=== PATIENT | male | born 1980 ===

== ENCOUNTER 2023-10-15 13:25 | Outpatient (CLI) | payer BC, SELFPAY ==
--- OUTSIDE RECORDS SUMMARY | 2023-10-15 13:26 | XMS_ITS | Continuity of Care Document ---
Author Name Unknown Organization [facility] Address [address] [place] [address] Care Team Providers Care Application Packaging Specialist Name Role Phone Allen Wolf Primary Care Physician Encounter [facility] Date(s): 07/05/23 - 07/05/23 [facility] [address] [place] [address] Encounter Diagnosis Dysphagia(Discharge Diagnosis) - 07/05/23 Discharge Disposition: Home or Self Care Attending Physician: Trace Warner MD Admitting Physician: Trace Warner MD Referring Physician: Trace Warner MD Allergies, Adverse Reactions, Alerts No Known Medication Allergies Substance Reaction Severity Status SHELLFISH DERIVED Unknown Active Assessment and Plan Future Appointments Immunizations Given and Recorded Vaccine Date Status Refusal Reason SARS-CoV-2 (COVID-19) mRNA-1273 vaccine 08/07/21 R ecorded SARS-CoV-2 (COVID-19) mRNA-1273 vaccine 01/30/21 R ecorded SARS-CoV-2 (COVID-19) mRNA-1273 vaccine 01/02/21 R ecorded influenza virus vaccine, inactivated 06/21/21 Vaibhav rded Medications Effexor XR 37.5 mg oral capsule, extended release 37.5 mg = 1 cap, Oral, Daily, # 30 cap, 0 Refill(s), Pharmacy: [facility] #[id number], 182, cm, 04/26/23 14:13:00 EDT, Height/Length Dosing, 68.04, kg, 04/26/23 14:13:00 EDT, Weight Dosing Start Date: 06/06/23 Status: Ordered Metoprolol Succinate ER 25 mg oral tablet, extended release 25 mg = 1 tab, Oral, As Directed, PRN other (see comment), as needed, # 30 tab, 11 Refill(s), Pharmacy: [facility] #[id number] Start Date: 03/19/22 Stop Date: 03/14/23 Status: Ordered Problem List Condition Confirmation Course Effective Dates Status Health St atus Informant Anxiety Confirmed Active Elevated blood-pressure reading without diagnosis of hypertension Confirmed Active IBS (irritable bowel syndrome) Confirmed Active Low back pain with sciatica Confirmed Active Sciatica Confirmed Active Social History Social History Type Response Smoking Status Smoking tobacco use: Never tobacco user;Never entered on: 04/26/23 Sex Male Patient Care team information Care Team Personnel Name: Allen Wolf NP Position: Physician Member Role: Informed Provider Care Team Related Persons Name: TAQUERIA ELLIOTT
--- OUTSIDE RECORDS SUMMARY | 2023-10-15 13:26 | XMS_ITS | Continuity of Care Document ---
Author Name Unknown Organization [facility] Address [address] [place] [address] Care Team Providers Care Medical Supply Technician Name Role Phone Allen Wolf Primary Care Physician Encounter [facility] Date(s): 07/03/23 - 07/03/23 [facility] [address] [place] [address] Discharge Disposition: Home Allergies, Adverse Reactions, Alerts No Known Medication Allergies Substance Reaction Severity Status SHELLFISH DERIVED Unknown Active Assessment and Plan Future Appointments Future Scheduled Tests Radiology* XR Barium Swallow w/ Air Contrast 07/04/23 Immunizations Given and Recorded Vaccine Date Status Refusal Reason SARS-CoV-2 (COVID-19) mRNA-1273 vaccine 08/07/21 R ecorded SARS-CoV-2 (COVID-19) mRNA-1273 vaccine 01/30/21 R ecorded SARS-CoV-2 (COVID-19) mRNA-1273 vaccine 01/02/21 R ecorded influenza virus vaccine, inactivated 06/21/21 Vaibhav rded Medications Effexor XR 37.5 mg oral capsule, extended release 37.5 mg = 1 cap, Oral, Daily, # 30 cap, 0 Refill(s), Pharmacy: [facility] #[id number], 182, cm, 04/26/23 14:13:00 EDT, Height/Length Dosing, 68.04, kg, 04/26/23 14:13:00 EDT, Weight Dosing Start Date: 06/06/23 Status: Ordered Metoprolol Succinate ER 25 mg oral tablet, extended release 25 mg = 1 tab, Oral, As Directed, PRN other (see comment), as needed, # 30 tab, 11 Refill(s), Pharmacy: [facility] #[id number] Start Date: 03/19/22 Stop Date: 03/14/23 Status: [...]
--- OUTSIDE RECORDS SUMMARY | 2023-10-15 13:27 | XMS_ITS | Continuity of Care Document ---
Author Name Unknown Organization [facility] Address [address] [place] [address] Care Team Providers Care Slitter Cut Off Operator Name Role Phone Allen Wolf Primary Care Physician Encounter [facility] Date(s): 07/04/23 - 07/04/23 [facility] [address] [place] [address] Discharge Disposition: Home Allergies, Adverse Reactions, Alerts [...] Daily, # 30 cap, 0 Refill(s), Pharmacy: [facility] #[id number], 182, cm, 04/26/23 14:13:00 EDT, Height/Length Dosing, 68.04, kg, 04/26/23 14:13:00 EDT, Weight Dosing Start Date: 06/06/23 Status: Ordered Metoprolol Succinate ER 25 mg oral tablet, extended release 25 mg = 1 tab, Oral, As Directed, PRN other (see comment), as needed, # 30 tab, 11 Refill(s), Pharmacy: [facility] #[id number] Start Date: 03/19/22 Stop Date: 03/14/23 Status: [...] information Care Team Personnel Name: Allen Wolf WIRELESS FIELD TECHNICIAN Position: Physician Member Role: Informed Provider Care Team Related Persons Name: TAQUERIA ELLIOTT
--- OUTSIDE RECORDS SUMMARY | 2023-10-15 13:27 | XMS_ITS | Continuity of Care Document ---
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 Allergies, Adverse Reactions, Alerts No Known Medication Allergies Substance Reaction Severity Status SHELLFISH DERIVED Unknown Active Assessment and Plan Future Appointments Diagnostic Tests Pending * Surgical Pathology [facility] 08/13/23 Functional Status 08/13/23 ADLs Independent 08/07/23 Recent Travel History No recent travel Immunizations Given and Recorded Vaccine Date Status Refusal Reason SARS-CoV-2 (COVID-19) mRNA-1273 vaccine 08/07/21 R ecorded SARS-CoV-2 (COVID-19) mRNA-1273 vaccine 01/30/21 R ecorded SARS-CoV-2 (COVID-19) mRNA-1273 vaccine 01/02/21 R ecorded influenza virus vaccine, inactivated 06/21/21 Vaibhav rded Medications Metoprolol Succinate ER 25 mg oral tablet, extended release 25 mg = 1 tab, Oral, As Directed, PRN other (see comment), as needed, # 30 tab, 11 Refill(s), Pharmacy: [facility] #[id number] Start Date: 03/19/22 Stop Date: 03/14/23 Status: Ordered venlafaxine 37.5 mg oral capsule, extended release 1 cap, Oral, Daily, # 30 cap, 0 Refill(s), Pharmacy: [facility] #[id number], 182, cm, 04/26/2314:13:00 EDT, Height/Length Dosing, 68.04, kg, 04/26/23 14:13:00 EDT, Weight Dosing Start Date: 07/08/23 Status: Ordered Problem List Condition Confirmation Course Effective Dates Status Health St atus Informant Anxiety Confirmed Active Elevated blood-pressure reading without diagnosis of hypertension Confirmed Active IBS (irritable bowel syndrome) Confirmed Active Low back pain with sciatica Confirmed Active Sciatica Confirmed Active Procedures Procedure Date Related Diagnosis Body Site Status Bone graft Completed Jaw and temporomandibular joint operations Completed Results Laboratory List Name Date Helicobacter Pylori Urease 08/13/23 Most recent to oldest [Reference Range]: 1 Helicobacter Pylori Urease [Negative] Ne gative (08/13/23 10:57 AM) Vital Signs Most recent to oldest [Reference Range]: 1 2 3 Temperature Temporal Artery [36-38 Deg C] 36.2 Deg C (08/13/23 10:30 AM) 35.8 Deg C *LOW* (08/13/23 9:10 AM) 36.8 Deg C (08/13/23 7:05 AM) Temperature Temporal Artery (DegF) [97.3-100 Deg F] 97.16 Deg F *LOW* (08/13/23 10:30 AM) 96.44 Deg F *LOW* (08/13/23 9:10 AM) Peripheral Pulse Rate [60-100 bpm] 71 bpm (08/13/23 10:30 AM) 77 bpm (08/13/23 10:15 AM) 66 bpm (08/13/23 10:00 AM) Heart Rate Monitored [60-100 bpm] 72 bpm (08/13/23 10:30 AM) 76 bpm (08/13/23 10:15 AM) 65 bpm (08/13/23 10:00 AM) Respiratory Rate [12-24 br/min] 22 br/min (08/13/23 10:30 AM) 17 br/min (08/13/23 10:15 AM) 9 br/min *LOW* (08/13/23 10:00 AM) Blood Pressure [90-140/60-90 mmHg] 122/95mmHg (08/13/23 10:30 AM) 126/92mmHg (08/13/23 10:15 AM) 132/91mmHg (08/13/23 10:00 AM) Mean Arterial Pressure, Cuff [70-110 mmHg] 104 mmHg (08/13/23 10:30 AM) 103 mmHg (08/13/23 10:15 AM) 105 mmHg (08/13/23 10:00 AM) Mean Arterial Pressure Cuff 102 mmHg (08/13/23 7:05 AM) Blood Pressure Location Left arm (08/13/23 7:05 AM) Weight 67.9 kg (08/13/23 7:05 AM) Weight Dosing 67.900 kg (08/13/23 7:05 AM) Height 183 cm (08/13/23 7:05 AM) Body Mass Index 20.28 kg/m2 (08/13/23 7:05 AM) Social History Social History Type Response Smoking Status Smoking tobacco use: Never tobacco user;Never entered on: 04/26/23 Sex Male Hospital Discharge Instructions Patient Education 08/13/2023 09:24:09 Hiatal Hernia Hiatal Hernia A hiatal hernia occurs when part of the stomach slides above the muscle that separates the abdomen from the chest (diaphragm). A person can be born with a hiatal hernia (congenital), or it may develop over time. In almost all cases of hiatal hernia, only the top part of the stomach pushes through the diaphragm. Many people have a hiatal hernia with no symptoms. The larger the hernia, the more likely it is that you will have symptoms. In some cases, a hiatal hernia allows stomach acid to flow back into the tube that carries food from your mouth to your stomach (esophagus). This may cause heartburn symptoms. Severe heartburn symptoms may mean that you have developed a condition called gastroesophageal reflux disease (GERD). What are the causes? This condition is caused by a weakness in the opening (hiatus) where the esophagus passes through the diaphragm to attach to the upper part of the stomach. A person may be born with a weakness in thehiatus, or a weakness can develop over time. What increases the risk? This condition is more likely to develop in: ??? Older people. Age is a major risk factor for a hiatal hernia, especially if you are over the age of 50. ??? women. ??? People who are overweight. ??? People who have frequent constipation. What are the signs or symptoms? Symptoms of this condition usually develop in the form of GERD symptoms. Symptoms include: ??? Heartburn. ??? Belching. ??? Indigestion. ??? Trouble swallowing. ??? Coughing or wheezing. ??? Sore throat. ??? Hoarseness. ??? Chest pain. ??? Nausea and vomiting. How is this diagnosed? This condition may be diagnosed during testing for GERD. Tests that may be done include: ??? X-rays of your stomach or chest. ??? An upper gastrointestinal (GI) series. This is an X-ray exam of your GI tract that is taken after you swallow a chalky liquid that shows up clearly on the X-ray. ??? Endoscopy. This is a procedure to look into your stomach using a thin, flexible tube that has atiny camera and light on the end of it. How is this treated? This condition may be treated by: ??? Dietary and lifestyle changes to help reduce GERD symptoms. ??? Medicines. These may include: ??? Etit-ggn-ercsuxx antacids. ??? Medicines that make your stomach empty more quickly. ??? Medicines that block the production of stomach acid (H2 blockers). ??? Stronger medicines to reduce stomach acid (proton pump inhibitors). ??? Surgery to repair the hernia, if other treatments are not helping. If you have no symptoms, you may not need treatment. Follow these instructions at home: Lifestyle and activity ??? Do not use any products that contain nicotine or tobacco, such as cigarettes and e-cigarettes. If you need help quitting, ask your health care provider. ??? Try to achieve and maintain a healthy body weight. ??? Avoid putting pressure on your abdomen. Anything that puts pressure on your abdomen increases the amount of acid that may be pushed up into your esophagus. ??? Avoid bending over, especially after eating. ??? Raise the head of your bed by putting blocks under the legs. This keeps your head and esophagushigher than your stomach. ??? Do not wear tight clothing around your chest or stomach. ??? Try not to strain when having a bowel movement, when urinating, or when lifting heavy objects. Eating and drinking ??? Avoid foods that can worsen GERD symptoms. These may include: ??? Fatty foods, like fried foods. ??? [place]burn fruits, like oranges or lemon. ??? Other foods and drinks that contain acid, like orange juice or tomatoes. ??? Spicy food. ??? Chocolate. ??? Eat frequent small meals instead of three large meals a day. This helps prevent your stomach from getting too full. ??? Eat slowly. ??? Do not lie down right after eating. ??? Do not eat 1???2 hours before bed. ??? Do not drink beverages with caffeine. These include cola, coffee, cocoa, and tea. ??? Do not drink alcohol. General instructions ??? Take pylj-eqj-nhwjcqw and prescription medicines only as told by your health care provider. ??? Keep all follow-up visits as told by your health care provider. This is important. Contact a health care provider if: ??? Your symptoms are not controlled with medicines or lifestyle changes. ??? You are having trouble swallowing. ??? You have coughing or wheezing that will not go away. Get help right away if: ??? Your pain is getting worse. ??? Your pain spreads to your arms, neck, jaw, teeth, or back. ??? You have shortness of breath. ??? You sweat for no reason. ??? You feel sick to your stomach (nauseous) or you vomit. ??? You vomit blood. ??? You have bright red blood in your stools. ??? You have black, tarry stools. Summary ??? A hiatal hernia occurs when part of the stomach slides above the muscle that separates the abdomen from the chest (diaphragm). ??? A person may be born with a weakness in the hiatus, or a weakness can develop over time. ??? Symptoms of hiatal hernia may include heartburn, trouble swallowing, or sore throat. ??? Management of hiatal hernia includes eating frequent small meals instead of three large meals aday. ??? Get help right away if you vomit blood, have bright red blood in your stools, or have black, tarry stools. This information is not intended to replace advice given to you by your health care provider. Make sure you discuss any questions you have with your health care provider. Document Revised: 07/10/2022 Document Reviewed: 07/27/2021 [employer] Patient Education ?? 2022 [employer]. 08/13/2023 09:23:53 ss colonoscopy discharge instructions (CUSTOM) COLONOSCOPY / SIGMOIDOSCOPY You had a polyp removed today. This will be sent to pathology and the office will call you in 10-14days with results. Following day: Return to full activity, including work. Diet: Eat and drink normally, unless instructed otherwise. Treatment for common after affects: Mild abdominal pain, bloating, or excessive gas: Rest, eat lightly and use a heating pad. Symptoms to watch for and report to your physician: SEVERE abdominal pain or bloating. Fever within 24 hours after procedure. A large amount of rectal bleeding. (A small amount of blood from the rectum is not serious, especially if hemorrhoids are present.) If a polyp has been removed- for the next seven days: Do not take aspirin. If you did NOT stop taking aspirin before your procedure, continue taking it even if you???ve had a polyp removed. If bright red rectal bleeding occurs, call your physician. If you have had a Colonoscopy: Do not attempt to drive a vehicle or operate power equipment of any kind for at least 24 hours after discharge from the hospital. Do not consume alcoholic beverages or other mood-altering drugs on the day of surgery. Mild irritation at needle site: Apply warm, moist pack to area for 20 minutes four times a day for 2-3 days. Call physician if persistent redness and/or drainage at needle site. In the event of any problems after surgery, do not hesitate to contact your doctor, [facility] , or the Emergency Room at [phone]. Diagnosis: Colon Polyp, Hiatal Hernia Doctor: Chris 08/13/2023 09:04:52 Upper Endoscopy, Adult, Care After Upper Endoscopy, Adult, Care After This sheet gives you information about how to care for yourself after your procedure. Your health care provider may also give you more specific instructions. If you have problems or questions, contact your health care provider. What can I expect after the procedure? After the procedure, it is common to have: ??? A sore throat. ??? Mild stomach pain or discomfort. ??? Bloating. ??? Nausea. Follow these instructions at home: ??? Follow instructions from your health care provider about what to eat or drink after your procedure. ??? Return to your normal activities as told by your health care provider. Ask your health care provider what activities are safe for you. ??? Take qeof-tis-ltkteie and prescription medicines only as told by your health care provider. ??? If you were given a sedative during the procedure, it can affect you for several hours. Do not drive or operate machinery until your health care provider says that it is safe. ??? Keep all follow-up visits as told by your health care provider. This is important. Contact a health care provider if you have: ??? A sore throat that lasts longer than one day. ??? Trouble swallowing. Get help right away if: ??? You vomit blood or your vomit looks like coffee grounds. ??? You have: ??? A fever. ??? Bloody, black, or tarry stools. ??? A severe sore throat or you cannot swallow. ??? Difficulty breathing. ??? Severe pain in your chest or abdomen. Summary ??? After the procedure, it is common to have a sore throat, mild stomach discomfort, bloating, andnausea. ??? If you were given a sedative during the procedure, it can affect you for several hours. Do not drive or operate machinery until your health care provider says that it is safe. ??? Follow instructions from your health care provider about what to eat or drink after your procedure. ??? Return to your normal activities as told by your health care provider. This information is not intended to replace advice given to you by your health care provider. Make sure you discuss any questions you have with your health care provider. Document Revised: 07/01/2020 Document Reviewed: 01/26/2019 Elsevier Patient Education ?? 2022 [employer] Discharge instructions * Johanna Cortez: PERFORM Event Display: Discharge Instructions Authored Date: [id number] HERBERT LANIER :1980 Age:42 years Sex:Male Visit Date:08/13/2023 Primary Care Physician: Allen Wolf NP Hospital Discharge Instructions We would like to thank you for allowing us to assist you with your healthcare needs. The following includes patient education materials and information regarding your injury/illness. Your Next Steps Discharge Orders Discharge Patient Instructions, Rest today. Resume diet and activities as tolerated. Scheduled Future Appointments Saturday 10:40 AM EDT ?? Your Summary Your Care Team Admitting Physician - Trace Warner MD Attending Physician - Trace Warner MD Primary Care Physician - Allen Wolf NP Referring Physician - Allen Wolf NP Education Materials COLONOSCOPY / SIGMOIDOSCOPY You had a polyp removed today. This will be sent to pathology and the office will call you in 10-14days with results. ? Following day: Return to full activity, including work. Diet: Eat and drink normally, unless instructed otherwise. ? Treatment for common after affects: Mild abdominal pain, bloating, or excessive gas: Rest, eat lightly and use a heating pad. ? Symptoms to watch for and report to your physician: SEVERE abdominal pain or bloating. ? Fever within 24 hours after procedure. ? A large amount of rectal bleeding. (A small amount of blood from the rectum is not serious, especially if hemorrhoids are present.) ? If a polyp has been removed- for the next seven days: Do not take aspirin. If you did NOT stop taking aspirin before your procedure, continue taking it even if you???ve had a polyp removed. ? If bright red rectal bleeding occurs, call your physician. ? If you have had a Colonoscopy: Do not attempt to drive a vehicle or operate power equipment of any kind for at least 24 hours after discharge from the hospital. ? Do not consume alcoholic beverages or other mood-altering drugs on the day of surgery. ? Mild irritation at needle site: Apply warm, moist pack to area for 20 minutes four times a day for 2-3 days. ? Call physician if persistent redness and/or drainage at needle site. ? In the event of any problems after surgery, do not hesitate to contact your doctor, [facility] , or the Emergency Room at [phone]. Diagnosis: Colon Polyp, Hiatal Hernia Doctor: Chris Patient/Home Energy Consultant Signature Patient Name:RENNY LANIERSILVIO Vidales I have received this information and my questions have been answered. Patient/Home Energy Consultant Name: Patient/Home Energy Consultant Signature: Relationship to Patient: Witness Name/Signature: Date: Electronically Signed on: 08/13/2023 09:32 ESTSigned by:AMD History and physical note * Trace Warner MD: PERFORM Event Display: History and Physical Authored Date: [id number] HERBERT LANIER :1980 Age:42 years Sex:Male Visit Date:08/13/2023 Primary Care Physician: Allen Wolf NP Physical Exam Vitals & Measurements T:??36.8?C ??(Temporal Artery)?? HR:??91??(Peripheral)?? RR:??18?? SpO2:??100%?? HT:??183??cm??WT:??67.9??kg?? BMI:??20.28?? Pain Score:??5?? O2 Therapy:??Room air?? 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 He and his partner moved to [facility] from??[place] about 3 years ago. Herbert??is found since??he was in college he has had some issues with??some food intolerances.?? Difficult to??describe some of the symptoms but he has a??somewhat of a aversion to certain foods wherehe does have??a significant amount of emesis??and food intolerances.?? Sometimes associated with this he has some loose stools. ?? No history of bloody stools no weight loss associated with??bowel habit changes??no abdominal pain ?? About 2 weeks ago he thinks he might of has??GI??enteritis??and about 24 hours of vomiting and someloose stools that did resolve. Denies any symptoms of chronic GERD??no chest discomfort he does take Pepcid on a??or Zantac an occasional basis ?? He has not seen GI regarding the food??issues. ?? Drives as??similar??to prior to his grandmother with have a certain foods [1] Vitals & Measurements T:??36.8?C ??(Temporal Artery)?? HR:??91??(Peripheral)?? RR:??18?? SpO2:??100%?? HT:??183??cm??WT:??67.9??kg?? BMI:??20.28?? Pain Score:??5?? O2 Therapy:??Room air?? Peers no acute distress??chronological age Trachea is midline without deviation oral motor Kos is clear??and range of motion her neck and jaw Cardiac exam is regular rate and rhythm Pulmonary clear to auscultation Abdomen soft no mass or tenderness Extremities??able to ambulate without difficulty Assessment/Plan Ordered: Cetacaine mucous membrane aerosol, 1 sprays, Mucous Membrane, Aerosol, Once, First Dose: 08/13/23 7:15:00 EST, Stop Date: 08/13/23 7:15:00 EST, Physician Stop, NOW Dextrose 5% in Lactated Ringers Injection 500 mL, Total Volume (mL): 500, 500 mL, Soln-IV, IV, 30 mL/hr, Start Date: 08/13/23 7:19:00 EST, 67.9 kg, Populate Charting Weight From Order, 1.86, m2 Valium, 2.5 mg = 0.5 mL, IV Push, Soln, every 2 min for 10 times, PRN sedation, First Dose: 08/13/23 7:15:00 EST, Stop Date: Limited # of times, Physician Stop, Routine Valium, 5 mg = 1 mL, IV Push, Soln, every 2 min for 10 times, PRN sedation, First Dose: 08/13/23 7:15:00 EST, Stop Date: Limited # of times, Physician Stop, Routine Valium, 7.5 mg = 1.5 mL, IV Push, Soln, every 2 min for 10 times, PRN sedation, First Dose: 08/13/23 7:15:00 EST, Stop Date: Limited # of times, Physician Stop, Routine Valium, 10 mg = 2 mL, IV Push, Soln, every 2 min for 10 times, PRN sedation, First Dose: 08/13/23 7:15:00 EST, Stop Date: Limited # of times, Physician Stop, Routine fentaNYL, 25 mcg = 0.5 mL, IV Push, Soln, every 2 min for 12 times, PRN sedation, First Dose: 08/13/23 7:15:00 EST, Stop Date: Limited # of times, Physician Stop, Routine fentaNYL, 50 mcg = 1 mL, IV Push, Soln, every 2 min for 12 times, PRN sedation, First Dose: 08/13/23 7:15:00 EST, Stop Date: Limited # of times, Physician Stop, Routine fentaNYL, 75 mcg = 1.5 mL, IV Push, Soln, every 2 min for 12 times, PRN sedation, First Dose: 08/13/23 7:15:00 EST, Stop Date: Limited # of times, Physician Stop, Routine fentaNYL, 100 mcg = 2 mL, IV Push, Soln, every 2 min for 12 times, PRN sedation, First Dose: 08/13/23 7:15:00 EST, Stop Date: Limited # of times, Physician Stop, Routine flumazenil, 0.2 mg = 2 mL, IV Push, Soln, As Directed for 10 times, PRN sedation, Administer over: 15 seconds, First Dose: 08/13/23 7:15:00 EST, Stop Date: Limited # of times, Physician Stop, Routine lidocaine 1% injectable solution, 1 mg 0.1 mL, Intradermal, Soln, As Directed, PRN other (see comment), First Dose: 08/13/23 7:19:00 EST, Routine Versed, 1 mg = 1 mL, IV Push, Soln, every 2 min for 10 times, PRN sedation, First Dose: 08/13/23 7:15:00 EST, Stop Date: Limited # of times, Physician Stop, Routine Versed, 2 mg = 2 mL, IV Push, Soln, every 2 min for 10 times, PRN sedation, First Dose: 08/13/23 7:15:00 EST, Stop Date: Limited # of times, Physician Stop, Routine Versed, 3 mg = 3 mL, IV Push, Soln, every 2 min for 10 times, PRN sedation, First Dose: 08/13/23 7:15:00 EST, Stop Date: Limited # of times, Physician Stop, Routine Versed, 4 mg = 4 mL, IV Push, Soln, every 2 min for 10 times, PRN sedation, First Dose: 08/13/23 7:15:00 EST, Stop Date: Limited # of times, Physician Stop, Routine naloxone, 0.08 mg = 0.2 mL, IV Push, Soln, every 2 min for 10 times, PRN sedation, First Dose: 08/13/23 7:15:00 EST, Stop Date: Limited # of times, Physician Stop, Routine NPO, 08/13/23 7:19:00 EST, Constant Indicator Obtain Surgical Consent, 08/13/23 7:19:00 EST, Colonoscopy and Esophagogastroduodenoscopy Peripheral IV Insertion, 08/13/23 7:19:00 EST Proceed with??EGD??colonoscopy and most likely perform some biopsies Problem List/Past Medical History Ongoing Anxiety Elevated blood-pressure reading without diagnosis of hypertension IBS (irritable bowel syndrome) Low back pain with sciatica Sciatica Historical No qualifying data Procedure/Surgical History ???Bone graft???Jaw and temporomandibular joint operations Medications Inpatient Cetacaine mucous membrane aerosol, 1 sprays, Mucous Membrane, Once Dextrose 5% in Lactated Ringers Injection 500 mL, 500 mL, IV fentaNYL, 25 mcg= 0.5 mL, IV Push, every 2 min, PRN fentaNYL, 50 mcg= 1 mL, IV Push, every 2 min, PRN fentaNYL, 75 mcg= 1.5 mL, IV Push, every 2 min, PRN fentaNYL, 100 mcg= 2 mL, IV Push, every 2 min, PRN flumazenil, 0.2 mg= 2 mL, IV Push, As Directed, PRN lidocaine 1% injectable solution, 1 mg= 0.1 mL, Intradermal, As Directed, PRN naloxone, 0.08 mg= 0.2 mL, IV Push, every 2 min, PRN Valium, 2.5 mg= 0.5 mL, IV Push, every 2 min, PRN Valium, 5 mg= 1 mL, IV Push, every 2 min, PRN Valium, 7.5 mg= 1.5 mL, IV Push, every 2 min, PRN Valium, 10 mg= 2 mL, IV Push, every 2 min, PRN Versed, 1 mg= 1 mL, IV Push, every 2 min, PRN Versed, 2 mg= 2 mL, IV Push, every 2 min, PRN Versed, 3 mg= 3 mL, IV Push, every 2 min, PRN Versed, 4 mg= 4 mL, IV Push, every 2 min, PRN Home Metoprolol Succinate ER 25 mg oral tablet, extended release, 25 mg= 1 tab, Oral, As Directed, PRN, 11 refills venlafaxine 37.5 mg oral capsule, extended release, 1 cap, Oral, Daily Allergies SHELLFISH DERIVED No Known Medication Allergies Social History Alcohol Current, Beer, Wine, Liquor, Daily Electronic Cigarette/Vaping Electronic Cigarette Use: Never. Employment/School Employed, Work/School description: self. Home/Environment Lives with Spouse. Nutrition/Health Diet: Regular. Caffeine intake amount: 2 teas in the am, couple mini cans of diet soda daily. Substance Use Current, Marijuana, 1-2 times per week Tobacco Never tobacco user Tobacco Use:. Never Smokeless Tobacco use:. Immunizations Vaccine Date Status SARS-CoV-2 (COVID-19) mRNA-1273 vaccine 08/07/2021 Recorded influenza virus vaccine, inactivated 06/21/2021 Recorded SARS-CoV-2 (COVID-19) mRNA-1273 vaccine 01/30/2021 Recorded SARS-CoV-2 (COVID-19) mRNA-1273 vaccine 01/02/2021 Recorded [1]??Office Visit Note; Trace Warner MD 07/03/2023 10:28 EDT Electronically Signed on 08/13/23 08:12 AM Trace Warner MD * Trace Warner MD: PERFORM, MODIFY Event Display: History and Physical Authored Date: [id number] HERBERT LANIER :1980 Age:42 years Sex:Male Visit Date:08/13/2023 Primary Care Physician: Allen Wolf NP Problem List/Past Medical History Ongoing Anxiety Elevated blood-pressure reading without diagnosis of hypertension IBS (irritable bowel syndrome) Low back pain with sciatica Sciatica Historical No qualifying data Procedure/Surgical History ???Bone graft???Jaw and temporomandibular joint operations Medications Inpatient Cetacaine mucous membrane aerosol, 1 sprays, Mucous Membrane, Once Dextrose 5% in Lactated Ringers Injection 500 mL, 500 mL, IV fentaNYL, 25 mcg= 0.5 mL, IV Push, every 2 min, PRN fentaNYL, 50 mcg= 1 mL, IV Push, every 2 min, PRN fentaNYL, 75 mcg= 1.5 mL, IV Push, every 2 min, PRN fentaNYL, 100 mcg= 2 mL, IV Push, every 2 min, PRN flumazenil, 0.2 mg= 2 mL, IV Push, As Directed, PRN lidocaine 1% injectable solution, 1 mg= 0.1 mL, Intradermal, As Directed, PRN naloxone, 0.08 mg= 0.2 mL, IV Push, every 2 min, PRN Valium, 2.5 mg= 0.5 mL, IV Push, every 2 min, PRN Valium, 5 mg= 1 mL, IV Push, every 2 min, PRN Valium, 7.5 mg= 1.5 mL, IV Push, every 2 min, PRN Valium, 10 mg= 2 mL, IV Push, every 2 min, PRN Versed, 1 mg= 1 mL, IV Push, every 2 min, PRN Versed, 2 mg= 2 mL, IV Push, every 2 min, PRN Versed, 3 mg= 3 mL, IV Push, every 2 min, PRN Versed, 4 mg= 4 mL, IV Push, every 2 min, PRN Home Metoprolol Succinate ER 25 mg oral tablet, extended release, 25 mg= 1 tab, Oral, As Directed, PRN, 11 refills venlafaxine 37.5 mg oral capsule, extended release, 1 cap, Oral, Daily Allergies SHELLFISH DERIVED No Known Medication Allergies Social History Alcohol Current, Beer, Wine, Liquor, Daily Electronic Cigarette/Vaping Electronic Cigarette Use: Never. Employment/School Employed, Work/School description: self. Home/Environment Lives with Spouse. Nutrition/Health Diet: Regular. Caffeine intake amount: 2 teas in the am, couple mini cans of diet soda daily. Substance Use Current, Marijuana, 1-2 times per week Tobacco Never tobacco user Tobacco Use:. Never Smokeless Tobacco use:. Immunizations Vaccine Date Status SARS-CoV-2 (COVID-19) mRNA-1273 vaccine 08/07/2021 Recorded influenza virus vaccine, inactivated 06/21/2021 Recorded SARS-CoV-2 (COVID-19) mRNA-1273 vaccine 01/30/2021 Recorded SARS-CoV-2 (COVID-19) mRNA-1273 vaccine 01/02/2021 Recorded Electronically Signed on 08/13/23 09:08 AM [facility] Electronically Signed on 08/13/23 09:23 AM Trace Warner MD Patient Care team information Care Team Personnel Name: Allen Wolf NP Position: Physician Member Role: Informed Provider Address: Address: [address] [place] [address], [place] [address]- [place] Care Team Related Persons Name: TAQUERIA ELLIOTT
--- OUTSIDE RECORDS SUMMARY | 2023-10-15 13:27 | XMS_ITS | Continuity of Care Document ---
Author Name Unknown Organization [facility] Address [address] [place] [address] Care Team Providers Care Speeder Machine Operator Name Role Phone Allen Allen Primary Care Physician Encounter [facility] Date(s): 04/26/23 - 04/26/[address] [address] Encounter Diagnosis Pain in lower back(Discharge Diagnosis) - 04/26/23 Discharge Disposition: Home or Self Care Attending Physician: Lucia Tan MD Admitting Physician: Lucia Tan MD Allergies, Adverse Reactions, Alerts No Known Medication Allergies Substance Reaction Severity Status SHELLFISH DERIVED Unknown Active Assessment and Plan Extracted from: Title:Clinical Document Author:Jelena Morgan te:04/26/23 Diagnosis: 1. Pain in lower back Comment: Diagnosis: Back pain Comment: Future Appointments Functional Status 04/26/23 Family Member Travel History No recent t ravel Recent Travel History No recent travel Other exposure to Infectious Disease Non e Immunizations Given and Recorded Vaccine Date Status Refusal Reason SARS-CoV-2 (COVID-19) mRNA-1273 vaccine 08/07/21 R ecorded SARS-CoV-2 (COVID-19) mRNA-1273 vaccine 01/30/21 R ecorded SARS-CoV-2 (COVID-19) mRNA-1273 vaccine 01/02/21 R ecorded influenza virus vaccine, inactivated 06/21/21 Vaibhav rded Medications cyclobenzaprine 5 mg oral tablet 5 mg = 1 tab, Oral, every evening, PRN as needed for muscle spasm, X 4 days, # 4 tab, 0 Refill(s), 04/30/23 3:38:00 PM CDT, Pharmacy: [facility] #[id number], 182, cm, 04/26/23 14:13:00 EDT, Height/Length Dosing, 68.04, kg, 04/26/23 14:13:00 EDT, Weight Dosing Start Date: 04/26/23 Stop Date: 04/30/23 Status: Ordered Metoprolol Succinate ER 25 mg oral tablet, extended release 25 mg = 1 tab, Oral, As Directed, PRN other (see comment), as needed, # 30 tab, 11 Refill(s), Pharmacy: [facility] #[id number] Start Date: 03/19/22 Stop Date: 03/14/23 Status: Ordered omeprazole 40 mg oral delayed release capsule 40 mg = 1 cap, Oral, Daily, # 30 cap, 1 Refill(s), Pharmacy: [facility] #[id number] Start Date: 02/02/22 Stop Date: 04/03/22 Status: Ordered Problem List Condition Confirmation Course Effective Dates Status Health St atus Informant Anxiety Confirmed Active Elevated blood-pressure reading without diagnosis of hypertension Confirmed Active Vital Signs Most recent to oldest [Reference Range]: 1 Temperature Temporal Artery [36-38 Deg C ] 36.1 Deg C (04/26/23 2:06 PM) Peripheral Pulse Rate [60-100 bpm] 76 bp m (04/26/23 2:06 PM) Respiratory Rate [12-24 br/min] 18 br/mi n (04/26/23 2:06 PM) Blood Pressure [90-140/60-90 mmHg] 173/1 13mmHg *HI* (04/26/23 2:06 PM) Weight Dosing 68.04 kg (04/26/23 2:13 PM) Weight Estimated 68.04 kg (04/26/23 2:06 PM) Height/Length Dosing 182.000 cm (04/26/23 2:13 PM) Height/Length Estimated 182.000 cm (04/26/23 2:06 PM) Social History Social History Type Response Smoking Status Smoking tobacco use: Never tobacco user;Never entered on: 04/26/23 Sex Male Hospital Discharge Instructions Patient Education 04/26/2023 15:36:35 Acute Back Pain, Adult Acute Back Pain, Adult Acute back pain is sudden and usually short-lived. It is often caused by an injury to the muscles and tissues in the back. The injury may result from: ??? A muscle, tendon, or ligament getting overstretched or torn. Ligaments are tissues that connectbones to each other. Lifting something improperly can cause a back strain. ??? Wear and tear (degeneration) of the spinal disks. Spinal disks are circular tissue that providecushioning between the bones of the spine (vertebrae). ??? Twisting motions, such as while playing sports or doing yard work. ??? A hit to the back. ??? Arthritis. You may have a physical exam, lab tests, and imaging tests to find the cause of your pain. Acute back pain usually goes away with rest and home care. Follow these instructions at home: Managing pain, stiffness, and swelling ??? Take gmro-etx-swqstau and prescription medicines only as told by your health care provider. Treatment may include medicines for pain and inflammation that are taken by mouth or applied to the skin, or muscle relaxants. ??? Your health care provider may recommend applying ice during the first 24???48 hours after your pain starts. To do this: ??? Put ice in a plastic bag. ??? Place a towel between your skin and the bag. ??? Leave the ice on for 20 minutes, 2???3 times a day. ??? Remove the ice if your skin turns bright red. This is very important. If you cannot feel pain, heat, or cold, you have a greater risk of damage to the area. ??? If directed, apply heat to the affected area as often as told by your health care provider. Usethe heat source that your health care provider recommends, such as a moist heat pack or a heating pad. ??? Place a towel between your skin and the heat source. ??? Leave the heat on for 20???30 minutes. ??? Remove the heat if your skin turns bright red. This is especially important if you are unable to feel pain, heat, or cold. You have a greater risk of getting burned. Activity ??? Do not stay in bed. Staying in bed for more than 1???2 days can delay your recovery. ??? Sit up and stand up straight. Avoid leaning forward when you sit or hunching over when you stand. ??? If you work at a desk, sit close to it so you do not need to lean over. Keep your chin tucked in. Keep your neck drawn back, and keep your elbows bent at a 90-degree angle (right angle). ??? Sit high and close to the steering wheel when you drive. Add lower back (lumbar) support to your car seat, if needed. ??? Take short walks on even surfaces as soon as you are able. Try to increase the length of time you walk each day. ??? Do not sit, drive, or clinical psychology teacher one place for more than 30 minutes at a time. Sitting or standing for long periods of time can put stress on your back. ??? Do not drive or use heavy machinery while taking prescription pain medicine. ??? Use proper lifting techniques. When you bend and lift, use positions that put less stress on your back: ??? Bend your knees. ??? Keep the load close to your body. ??? Avoid twisting. ??? Exercise regularly as told by your health care provider. Exercising helps your back heal fasterand helps prevent back injuries by keeping muscles strong and flexible. ??? Work with a physical therapist to make a safe exercise program, as recommended by your health care provider. Do any exercises as told by your physical therapist. Lifestyle ??? Maintain a healthy weight. Extra weight puts stress on your back and makes it difficult to havegood posture. ??? Avoid activities or situations that make you feel anxious or stressed. Stress and anxiety increase muscle tension and can make back pain worse. Learn ways to manage anxiety and stress, such as through exercise. General instructions ??? Sleep on a firm mattress in a comfortable position. Try lying on your side with your knees slightly bent. If you lie on your back, put a pillow under your knees. ??? Keep your head and neck in a straight line with your spine (neutral position) when using electronic equipment like smartphones or pads. To do this: ??? Raise your smartphone or pad to look at it instead of bending your head or neck to look down. ??? Put the smartphone or pad at the level of your face while looking at the screen. ??? Follow your treatment plan as told by your health care provider. This may include: ??? Cognitive or behavioral therapy. ??? Acupuncture or massage therapy. ??? Meditation or yoga. Contact a health care provider if: ??? You have pain that is not relieved with rest or medicine. ??? You have increasing pain going down into your legs or buttocks. ??? Your pain does not improve after 2 weeks. ??? You have pain at night. ??? You lose weight without trying. ??? You have a fever or chills. ??? You develop nausea or vomiting. ??? You develop abdominal pain. Get help right away if: ??? You develop new bowel or bladder control problems. ??? You have unusual weakness or numbness in your arms or legs. ??? You feel faint. These symptoms may represent a serious problem that is an emergency. Do not wait to see if the symptoms will go away. Get medical help right away. Call your local emergency services (911 in the [place] Do not drive yourself to the hospital. Summary ??? Acute back pain is sudden and usually short-lived. ??? Use proper lifting techniques. When you bend and lift, use positions that put less stress on your back. ??? Take nued-ywc-qgrcvbc and prescription medicines only as told by your health care provider, andapply heat or ice as told. This information is not intended to replace advice given to you by your health care provider. Make sure you discuss any questions you have with your health care provider. Document Revised: 11/17/2021 Document Reviewed: 11/17/2021 [employer] Patient Education ?? 2022 [employer]. Physician Emergency department Note * Meli Mayes MD: PERFORM Event Display: ED Note Physician Authored Date: [id number] JULIO CESAR LANIER :1980 Age:42 years Sex:Male Visit Date:04/26/2023 Primary Care Physician: Allen Allen NP Basic Information Time Seen: Meli Mayes MD / 04/26/2023 14:35 Chief Complaint i'm having really bad left sciatic pain, that started this morning. Usually means that my back will go out shortly. 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 Pt reports on and off back pain in the past few years. Lt sided, no radiation down his legs. Pt attributes pain to sciatica. He says he noticed worsening of the pain today as he was walking with his . He denies trauma or fall or strenuous activity.?? There has been no bowel or bladder incontinence or perianal anesthesia. ??The patient also denies numbness or tingling down the extremities, or weakness of any of the extremities. The patient denies current IV drug use or history of. No h/o recent surgery or injections in the back.?? Pt says smoking marijuana provides relief ?? ROS: In addition to the ROS embedded in the HPI, the patient has no Const: fever, chills CV: chest pain or palpittiaons Pulm: sob GI: n/v/c/d or abd pain ? Physical examination GENERAL: A&Ox3, Well developed well nourished in nad HEENT: Moist mucous membranes. NECK: Supple, no JVD. BACK: no ttp over the spine, no step off, there is paraspinal ttp on the [@@@] EXTREMITIES: No clubbing, cyanosis or edema, motor 5/5 in all 4 extremities, sensation intact, gaitis steady [@@@] with normal coordination, patellar reflexes wnl and symmetric b/l.? MDM: 42year-old male with back pain ?? Previous charts reviewed. Vitals reviewed, nursing triage note reviewed ?? Initial DDx in this patient included herniated intervertebral disc, acute ligamentous injury, acutemuscle strain, spondylolisthesis and other musculoskeletal etiologies, cauda equina, spinal fracture, spinal stenosis, epidural abscess and hematoma, cancer metastases, kidney stone, and vascular catastrophe such as aortic dissection. ?? Patient presented with lower back pain with reassuring VS and exam.?? Was noted to have no red flag signs or symptoms of cauda equina or central herniation based on history and exam. Patient denied preceding trauma. ??Patient noted to have a normal neurologic examination in the ED to include deep tendon reflexes in the lower extremities. ??Patient felt to have no indication for imaging at this time. No history of recent surgery or injections in the back, IVDU, fever, or other findings to suggest risk for epidural hematoma or abscess. ??Doubt kidney stone or urinary tract infection given absence of urinary symptoms, significant costovertebral angle (CVA) tenderness or other suggestive findings. ??Not consistent with aortic dissection with pain not described as tearing pain and no chest pain.? Patient reported significant improvement in pain with treatment in the ED w/ toradol prior to discharge. ?? Prior to discharge, we discussed modified activity with emphasis on avoiding prolonged bedrest. ??We discussed return precautions, specifically for worsening pain or focal neurologic deficits, treatment with NSAIDs/muscle relaxants and follow up with primary care doctor within one to two weeks for further evaluation, and the patient demonstrated understanding and agreement with this plan. ??Wealso discussed follow up with primary care doctor for referral to physical therapy and consideration of outpatient imaging. All questions answered. ?? Physical Exam Vitals & Measurements T:??36.1?C ??(Temporal Artery)?? HR:??76??(Peripheral)?? RR:??18?? BP:??173/113?? SpO2:??98%?? HT:??182.000??cm?? WT:??68.04??kg??(Estimated)?? O2 Therapy:??Room air?? Procedure No Qualifying Data Assessment/Plan 1.??Pain in lower back??M54.50 Ordered: cyclobenzaprine 5 mg oral tablet, 5 mg = 1 tab, Oral, every evening, PRN as needed for muscle spasm, X 4 days, # 4 tab, 0 Refill(s), 04/30/23 16:38:00 EDT, Pharmacy: [facility] #[id number], 182,cm, 04/26/23 14:13:00 EDT, Height/Length Dosing, 68.04, kg, 04/26/23 14:13:00 EDT, We... Discharge Patient, 04/26/23 16:38:00 EDT, Constant Indicator ?? Patient Education Acute Back Pain, Adult Medication Reconciliation New Prescription cyclobenzaprine (cyclobenzaprine 5 mg oral tablet)1 tab Oral (given by mouth) every evening as needed as needed for muscle spasm for 4 Days. Refills: 0. ?? Unchanged metoprolol (Metoprolol Succinate ER 25 mg oral tablet, extended release)1 tab Oral (given by mouth)As Directed as needed other (see comment) for 30 Days. as needed. Refills: 11. ?? omeprazole (omeprazole 40 mg oral delayed release capsule)1 Capsules Oral (given by mouth) every day for 30 Days. Refills: 1. Problem List/Past Medical History Ongoing Anxiety Elevated blood-pressure reading without diagnosis of hypertension Historical No qualifying data Medication Administration Given Toradol, 30 mg, IM Allergies SHELLFISH DERIVED No Known Medication Allergies [...] user Tobacco Use:. Never Smokeless Tobacco use:. Electronically Signed on 04/26/23 04:40 PM Meli Mayes MD Emergency department Discharge instructions * Meli Mayes MD: PERFORM Event Display: ED Discharge Information Authored Date: [id number] JULIO CESAR LANIER :1980 Age:42 years Sex:Male Visit Date:04/26/2023 Primary Care Physician: Allen Allen NP Discharge Instructions We would like to thank you for allowing us to assist you with your healthcare needs. The following includes patient education materials and information regarding your injury/illness. Diagnosis from Today's Visit Pain in lower back Discharge Vitals Temperature??(Temporal Artery) 97.0 ??F (36.1 ??C) Heart Rate??(Peripheral) 76 Respiratory Rate?? 18 Blood Pressure?? 173/113?? Height?? 71.65 in (182.000 cm) Weight??(Estimated) 150.03 lb (68.04 kg) Allergies SHELLFISH DERIVED No Known Medication Allergies What to Do Next Instructions from Your Care Team Please continue Tylenol and/or Ibuprofen for your pain. For very severe pain, take muscle relaxant in the evening. Do?? not drive, operate machinery, or make important decisions when taking this medication as it may make you sleepy. Follow up with your primary care provider for reevaluation in 1-2 weeks if your pain persists, as you will likely benefit from physical therapy. Please return to the ED for any new or worsening symptoms. Upcoming Scheduled Appointments Saturday 1:20 PM EDT ?? You were treated today on an emergency basis; it may be hi to contact your primary care provider to notify them of your visit today. You may have been referred to your regular doctor or a specialist, please follow up as instructed. If your condition worsens or you can't get in to see the doctor, contact the Emergency Department. Medications What How Much When Why Instructions Next Dose New cyclobenzaprine (cyclobenzaprine 5 mg oral tablet) 1 tab Oral (given by mouth) Every evening as needed for as needed for muscle spasm Pain in lower back Duration: 4 Days Pickup at [facility] #[id number] Unchanged metoprolol (Metoprolol Succinate ER 25 mg oral tablet, extended release) 1 tab Oral (given by mouth) As Directed as needed for other (see comment) Duration: 30 Days as needed ?? Unchanged omeprazole (omeprazole 40 mg oral delayed release capsule) 1 Capsules Oral (given by mouth) Every day Duration: 30 Days Pharmacy Information [facility] #[id number]: [address] [phone] Education Materials Acute Back Pain, Adult Acute back pain is sudden and usually short-lived. It is often caused by an injury to the muscles and tissues in the back. The injury may result from: ? A muscle, tendon, or ligament getting overstretched or torn. Ligaments are tissues that connect bones to each other. Lifting something improperly can cause a back strain. ? Wear and tear (degeneration) of the spinal disks. Spinal disks are circular tissue that provide cushioning between the bones of the spine (vertebrae). ? Twisting motions, such as while playing sports or doing yard work. ? A hit to the back. ? Arthritis. You may have a physical exam, lab tests, and imaging tests to find the cause of your pain. Acute back pain usually goes away with rest and home care. Follow these instructions at home: Managing pain, stiffness, and swelling ? Take kspk-toj-ijpqfdi and prescription medicines only as told by your health care provider. Treatment may include medicines for pain and inflammation that are taken by mouth or applied to the skin, or muscle relaxants. ? Your health care provider may recommend applying ice during the first 24???48 hours after your painstarts. To do this: ? Put ice in a plastic bag. ? Place a towel between your skin and the bag. ? Leave the ice on for 20 minutes, 2???3 times a day. ? Remove the ice if your skin turns bright red. This is very important. If you cannot feel pain, heat, or cold, you have a greater risk of damage to the area. ? If directed, apply heat to the affected area as often as told by your health care provider. Use theheat source that your health care provider recommends, such as a moist heat pack or a heating pad. ? Place a towel between your skin and the heat source. ? Leave the heat on for 20???30 minutes. ? Remove the heat if your skin turns bright red. This is especially important if you are unable to feel pain, heat, or cold. You have a greater risk of getting burned. Activity ? Do not stay in bed. Staying in bed for more than 1???2 days can delay your recovery. ? Sit up and stand up straight. Avoid leaning forward when you sit or hunching over when you stand. ? If you work at a desk, sit close to it so you do not need to lean over. Keep your chin tucked in. Keep your neck drawn back, and keep your elbows bent at a 90-degree angle (right angle). ? Sit high and close to the steering wheel when you drive. Add lower back (lumbar) support to your car seat, if needed. ? Take short walks on even surfaces as soon as you are able. Try to increase the length of time you walk each day. ? Do not sit, drive, or clinical psychology teacher one place for more than 30 minutes at a time. Sitting or standing for long periods of time can put stress on your back. ? Do not drive or use heavy machinery while taking prescription pain medicine. ? Use proper lifting techniques. When you bend and lift, use positions that put less stress on your back: ? Bend your knees. ? Keep the load close to your body. ? Avoid twisting. ? Exercise regularly as told by your health care provider. Exercising helps your back heal faster andhelps prevent back injuries by keeping muscles strong and flexible. ? Work with a physical therapist to make a safe exercise program, as recommended by your health care provider. Do any exercises as told by your physical therapist. Lifestyle ? Maintain a healthy weight. Extra weight puts stress on your back and makes it difficult to have good posture. ? Avoid activities or situations that make you feel anxious or stressed. Stress and anxiety increase muscle tension and can make back pain worse. Learn ways to manage anxiety and stress, such as through exercise. General instructions ? Sleep on a firm mattress in a comfortable position. Try lying on your side with your knees slightlybent. If you lie on your back, put a pillow under your knees. ? Keep your head and neck in a straight line with your spine (neutral position) when using electronicequipment like smartphones or pads. To do this: ? Raise your smartphone or pad to look at it instead of bending your head or neck to look down. ? Put the smartphone or pad at the level of your face while looking at the screen. ? Follow your treatment plan as told by your health care provider. This may include: ? Cognitive or behavioral therapy. ? Acupuncture or massage therapy. ? Meditation or yoga. Contact a health care provider if: ? You have pain that is not relieved with rest or medicine. ? You have increasing pain going down into your legs or buttocks. ? Your pain does not improve after 2 weeks. ? You have pain at night. ? You lose weight without trying. ? You have a fever or chills. ? You develop nausea or vomiting. ? You develop abdominal pain. Get help right away if: ? You develop new bowel or bladder control problems. ? You have unusual weakness or numbness in your arms or legs. ? You feel faint. These symptoms may represent a serious problem that is an emergency. Do not wait to see if the symptoms will go away. Get medical help right away. Call your local emergency services (911 in the [place] Do not drive yourself to the hospital. Summary ? Acute back pain is sudden and usually short-lived. ? Use proper lifting techniques. When you bend and lift, use positions that put less stress on your back. ? Take qbye-dwt-hdawjro and prescription medicines only as told by your health care provider, and apply heat or ice as told. This information is not intended to replace advice given to you by your health care provider. Make sure you discuss any questions you have with your health care provider. Document Revised: 11/17/2021 Document Reviewed: 11/17/2021 [employer] Patient Education ?? 2022 [employer] Tests Performed Medications and Immunizations Administered Given Toradol, 30 mg, IM Patient/Rough Planer Tender Signature Patient Name:JULIO CESAR LANIER Sobeida I have received this information and my questions have been answered. Patient/Rough Planer Tender Name: Patient/Rough Planer Tender Signature: Relationship to Patient: Witness Name/Signature: Date: Electronically Signed on: 04/26/2023 16:40 EDTSigned by:GMB Discharge summary * Jelena Morgan: PERFORM Event Display: Discharge Note Authored Date: [id number] * Jelena Morgan: PERFORM Event Display: Discharge Note Authored Date: [id number] Diagnosis: 1. Pain in lower back Comment: Diagnosis: Back pain Comment: Electronically Signed on 04/26/23 04:54 PM Jelena Morgan Patient Care team information Care Team Personnel Name: Allen Allen NP Position: Physician Member Role: Informed Provider Name: Meli Mayes MD Position: Physician Member Role: ED Physician Address: Address: [address] [place], [place] [address] Name: Nicolle Mitchell Position: Nurse Member Role: ED Nurse Care Team Related Persons Name: TAQUERIA ELLIOTT
--- OUTSIDE RECORDS SUMMARY | 2023-10-15 13:27 | XMS_ITS | Continuity of Care Document ---
Author Name Unknown Organization [facility] Address [address] [place] [address] Care Team Providers Care [employer]ishing [employer] Operator Name Role Phone Allen Allen Primary Care Physician [facility] Date(s): 06/03/23 - 06/03/[address] [address] Encounter Diagnosis Low back pain with sciatica(Discharge Diagnosis) - 06/03/23 Discharge Disposition: Home or Self Care Attending Physician: Allen Allen DIRECTOR CAREER Admitting Physician: Allen Allen NP Referring Physician: Allen Allen DIRECTOR CAREER Allergies, Adverse Reactions, Alerts No Known Medication [...] Daily, # 30 cap, 0 Refill(s), Pharmacy: [facility] #[id number], 182, cm, 04/26/23 14:13:00 EDT, Height/Length Dosing, 68.04, kg, 04/26/23 14:13:00 EDT, Weight Dosing Start Date: 04/30/23 Status: Ordered Metoprolol Succinate ER 25 mg oral tablet, extended release 25 mg = 1 tab, Oral, As Directed, PRN other (see comment), as needed, # 30 tab, 11 Refill(s), Pharmacy: [facility] #[id number] Start Date: 03/19/22 Stop Date: 03/14/23 Status: [...]
[2023-10-15 22:48] LABS: PSA, Screening 4.2 ng/mL (<=2.5)
== END 2023-10-15 13:26 | disposition home or self-care (01) ==
LOC: LBO 13:25
PROVIDERS: Nurse Practitioner Gerontology; PCP Registered Nurse; Visit Provider Urology
DX: R97.20 Elevated prostate specific antigen [PSA] (principal); R39.89 Other symptoms and signs involving the genitourinary system; Z12.5 Encounter for screening for malignant neoplasm of prostate
CPT/HCPCS: 36415; 84153